=== PATIENT | female | born 1965 | race Caucasian/White ===

== ENCOUNTER → 2016-11-22 | Outpatient (CLI) | payer BC ==
[~2016-11-22] MED LIST: ALIGN4 MG PO; AMOXICILLIN875 MG PO; BENTYL 20 MG TA20 M1 PO; CIPROFLOXACIN500 M1 PO; CLEOCIN100 MG VAG; COMPAZINE10 MG PO; ENPRESSE1 EACH PO; FLAGYL500 MG PO; FLEXERIL PO; FLONASE; FLONASE 0.05%50 MCG NASAL; HYDROCHLOROTH12.5 M1 PO; IBUPROFEN 600600 M1; IBUPROFEN 600600 M1 PO; LIPITOR10 MG PO; LISINOPRIL-HCT1 EAC1 PO; LISINOPRIL10 MG PO; MIRALAX255 GM; MOBIC15 MG PO; NEURONTIN 300300 M1 PO; NORCO 5-325 TA1 EACH PO; PERCOCET 7.5-51 EACH PO; SIMETHICON CHEW80 MG PO; TRIPHASIL PO; VICODIN 5-5001 EACH; ZANAFLEX4 MG PO; ZOFRAN ODT4 MG PO; ZYRTEC 10 MG TA10 M1 PO; ZYRTEC 10 MG TA10 MG PO; ZYRTEC10 M2 PO
== END ==
LOC: RAD 09:35
DX: Z12.31 Encounter for screening mammogram for malignant neoplasm of breast (principal)